=== PATIENT | female | born 1995 | race Caucasian/White ===

== ENCOUNTER 2017-06-12 09:15 | Emergency (ER) | payer SELFPAY ==
--- NOTE | 2017-06-12 09:29 | EDPHY ---
HPI/HX/ROS/PE/MDM Narrative: CHIEF COMPLAINT: Seizure, suicidal ideations HPI: The patient is a 22 y/o female with a history of pseudoseizures arriving via EMS after two witnessed pseudoseizures. She began having suicidal ideations last night which continued to this morning. She went to [facility] where she had an apparent pseudoseizure. EMS was called and she had a second pseudoseizure on their arrival. She remembers both incidents. She requested to be evaluated as she normally only has one pseudoseizure a week. Both pseudoseizures lasted less than a minute and she reports remembering people talking to her but not being able to respond. She denies acting on her suicidal ideations or taking any drugs. She denies any other associated symptoms REVIEW OF SYSTEMS: Aside from elements discussed in the HPI, a comprehensive 10-point review of systems was reviewed and is negative. PMH: Pseudoseizures SOCIAL HISTORY: Denies drug or alcohol abuse. PHYSICAL EXAM: General:Patient is alert, in no acute distress, and dressed in a rainbow colored , full body cat suit ENT:Eyes are normal to inspection. ENT inspection normal. Neck: Normal inspection. Full range of motion. Respiratory:No respiratory distress. Breath sounds normal bilaterally. Cardiovascular: Regular rate and rhythm. Strong peripheral pulses. Normal cap refill. Abdomen:The abdomen is nontender to palpation. There are no peritoneal signs. There are normal bowel sounds. Back: Normal to inspection. No tenderness to palpation. Skin: Normal color. No rash. Warm and dry. Extremities: Normal appearance. Full range of motion. Neuro: Oriented x3. Normal motor function. Normal sensory function. Psych: Admits to suicidal ideation. Odd affect. (Naun Sanderson) ED Course: This patient was turned over to me at change of shift. She has been assessed by the psychiatric team in since she has voluntary they want to send her by cab down to a crisis stabilization unit. She has been accepted. I will discharge the patient. She is not suicidal. She is not homicidal. She does not meet criteria for an M1 hold. (Nestor Armijo) Using [facility] I found she was recently a patient at [facility] in the behavior health unit. Patient has been evaluated by a mental health provider. They agree she should be placed as she continues to express suicidal ideations. We both agree that she does not need to be on a hold at this time. Patient signed out to Dr. Armijo pending placement. (Naun Sanderson) - Data Points Laboratory Results: Laboratory Results 06/12/17 09:15 06/12/17 09:15 06/12/17 06/12/17 06/12/17 Unknown 10:00 09:15 WBC RBC Hgb Hct MCV MCH MCHC RDW Plt Count MPV Neut % (Auto) Lymph % (Auto) [place] % (Auto) Eos % (Auto) Baso % (Auto) Nucleat RBC Rel Count Absolute Neuts (auto) Absolute Lymphs (auto) Absolute Monos (auto) Absolute Eos (auto) Absolute Basos (auto) Absolute Nucleated RBC Immature Gran % Immature Gran # Sodium Potassium Chloride Carbon Dioxide Anion Gap BUN Creatinine Estimated GFR Glucose Calcium Beta HCG, Qual Nasal Influenza A PCR NEGATIVE FOR FLU A (NEGATIVE) Nasal Influenza B PCR NEGATIVE FOR FLU B (NEGATIVE) Urine Opiates Screen NEGATIVE (NEGATIVE) Urine Barbiturates NEGATIVE (NEGATIVE) Ur Phencyclidine Scrn NEGATIVE (NEGATIVE) Ur Amphetamine Screen NEGATIVE (NEGATIVE) U Benzodiazepines Scrn NON-NEGATIVE H (NEGATIVE) Urine Cocaine Screen NEGATIVE (NEGATIVE) U Marijuana (THC) Screen NON-NEGATIVE H (NEGATIVE) Ethyl Alcohol < 10 mg/dL mg/dL (0-10) 06/12/17 06/12/17 06/12/17 09:15 09:15 09:15 WBC 9.41 10^3/uL 10^3/uL (3.80-9.50) RBC 5.22 10^6/uL 10^6/uL (4.18-5.33) Hgb 15.8 g/dL g/dL (12.6-16.3) Hct 45.1 % % (38.0-47.0) MCV 86.4 fL fL (81.5-99.8) MCH 30.3 pg pg (27.9-34.1) MCHC 35.0 g/dL g/dL (32.4-36.7) RDW 12.1 % % (11.5-15.2) Plt Count 399 10^3/uL 10^3/uL (150-400) MPV 9.4 fL fL (8.7-11.7) Neut % (Auto) 46.5 % % (39.3-74.2) Lymph % (Auto) 41.7 % % (15.0-45.0) [place] % (Auto) 8.8 % % (4.5-13.0) Eos % (Auto) 2.0 % % (0.6-7.6) Baso % (Auto) 0.6 % % (0.3-1.7) Nucleat RBC Rel Count 0.0 % % (0.0-0.2) Absolute Neuts (auto) 4.37 10^3/uL 10^3/uL (1.70-6.50) Absolute Lymphs (auto) 3.92 10^3/uL H 10^3/uL (1.00-3.00) Absolute Monos (auto) 0.83 10^3/uL H 10^3/uL (0.30-0.80) Absolute Eos (auto) 0.19 10^3/uL 10^3/uL (0.03-0.40) Absolute Basos (auto) 0.06 10^3/uL 10^3/uL (0.02-0.10) Absolute Nucleated RBC 0.00 10^3/uL 10^3/uL (0-0.01) Immature Gran % 0.4 % % (0.0-1.1) Immature Gran # 0.04 10^3/uL 10^3/uL (0.00-0.10) Sodium 145 mEq/L H mEq/L (134-144) Potassium 4.1 mEq/L mEq/L (3.5-5.2) Chloride 107 mEq/L mEq/L (97-110) Carbon Dioxide 20 mEq/l L mEq/l (22-31) Anion Gap 18 mEq/L H mEq/L (8-16) BUN 13 mg/dL mg/dL (7-23) Creatinine 0.8 mg/dL mg/dL (0.6-1.0) Estimated GFR > 60 Glucose 97 mg/dL mg/dL (70-100) Calcium 10.3 mg/dL mg/dL (8.5-10.4) Beta HCG, Qual NEGATIVE Nasal Influenza A PCR Nasal Influenza B PCR Urine Opiates Screen Urine Barbiturates Ur Phencyclidine Scrn Ur Amphetamine Screen U Benzodiazepines Scrn Urine Cocaine Screen U Marijuana (THC) Screen Ethyl Alcohol General Initial Vital Signs: Initial Vital Signs Temperature (C) 36.5 C 06/12/17 09:34 Heart Rate 80 06/12/17 09:34 Respiratory Rate 16 06/12/17 09:34 Blood Pressure 113/72 06/12/17 09:34 O2 Sat (%) 100 06/12/17 09:34 O2 Delivery Mode Room Air Allergies/Adverse Reactions: lamictal Allergy (Uncoded 06/12/17 09:42) Home Medications: Medication Instructions Recorded Tiffany 06/12/17 Departure - Departure Disposition: Other Psych, Not [place] Clinical Impression: Suicidal ideation, Pseudoseizures Condition: Good Instructions: Suicide Prevention for Adults (ED) Referrals: Reza Maldonado [Primary Care Provider] - As per Instructions Report Scribed for: Naun Sanderson Report Scribed by: Tari Britton Date of Report: 06/12/17 Time of Report: 09:29 Physician Review and Approval Statement: Portions of this note were transcribed by an ED scribe. I personally performed the history, physical exam, and medical decision making; and confirm the accuracy of the information in the transcribed note.
[2017-06-12 09:40] LABS: % IMMATURE GRANULYOCYTES 0.4 % (0.0-1.1); ABSOLUTE IMMATURE GRANULOCYTES 0.04 10^3/uL (0.00-0.10); ADD DIFF? NO; ADD MORPH? NO; ADD SCAN? NO; ATYPICAL LYMPHOCYTE FLAG 50 (0-99); FRAGMENT RBC FLAG 0 (0-99); HEMATOCRIT 45.1 % (38.0-47.0); HEMOGLOBIN 15.8 g/dL (12.6-16.3); LEFT SHIFT FLG 0 (0-99); LIPEMIA HEMOLYSIS FLAG 90 (0-99); MEAN CELL HEMOGLOBIN 30.3 pg (27.9-34.1); MEAN CELL VOLUME 86.4 fL (81.5-99.8); MEAN PLATELET VOLUME 9.4 fL (8.7-11.7); PLATELET CLUMPS FLAG 0 (0-99); PLATELET COUNT 399 10^3/uL (150-400); RED BLOOD CELL COUNT 5.22 10^6/uL (4.18-5.33); RED CELL DISTRIBUTION WIDTH 12.1 % (11.5-15.2)
[2017-06-12 09:42] VITALS: RESP 16
[2017-06-12 09:57] LABS: ANION GAP 18 mEq/L (8-16); CALCIUM 10.3 mg/dL (8.5-10.4); CARBON DIOXIDE 20 mEq/l (22-31); CHLORIDE 107 mEq/L (97-110); CREATININE 0.8 mg/dL (0.6-1.0); GLOMERULAR FILTRATION RATE > 60; GLUCOSE 97 mg/dL (70-100); POTASSIUM 4.1 mEq/L (3.5-5.2); SODIUM 145 mEq/L (134-144)
[2017-06-12 10:59] LABS: ETHANOL SERUM < 10 mg/dL (0-10)
[2017-06-12] MEDS ORDERED: GABAPENTIN 300 MG CAP PO ONE (17:21)
[2017-06-12] MEDS ORDERED: NICOTINE POLACRILEX 2 MG GUM B PRN (17:29)
[2017-06-12 17:46] VITALS: BP 111/74; PULSE 61; TEMP 97.5; O2SAT 100
== END 2017-06-12 18:24 ==
LOC: EDUNIT#
DX: R45.851 Suicidal ideations (principal); G40.89 Other seizures
CPT/HCPCS: 80305; G0480